=== PATIENT | male | born 1960 | race Caucasian/White ===

== ENCOUNTER → 2016-11-11 | Outpatient (CLI) | payer MEDICAID ==
[2016-11-11 18:44] LABS: Basophils # (A) 0.1 k/uL (0-0.2); Basophils % (A) 1 %; CH 29.9; CHCM 34.2; Eosinophils # (A) 0.3 k/uL (0-0.7); Eosinophils % (A) 4 %; HCT 43.3 % (39.0-53.0); HDW 2.77; HGB 14.5 gm/dL (13.0-17.5); Luc # (Auto) 0.15; Luc % (Auto) 2; Lymphocytes # (A) 2.2 k/uL (1.0-4.8); Lymphocytes % (A) 30 %; MCH 29.4 pg (25.0-35.0); MCHC 33.5 g/dL (31.0-37.0); MCV 87.9 fL (80.0-100.0); Mean Platelet Volume 7.1; Monocytes # (A) 0.4 k/uL (0-1.0); Monocytes % (A) 5 %; Neutrophils # (A) 4.2 k/uL (1.3-7.7); Neutrophils % (A) 58 %; RBC 4.93 m/uL (4.30-5.90); RDW 13.3 % (11.5-15.5); WBC 7.2 k/uL (3.8-10.6); WBC (Perox) 7.27
[2016-11-11 19:00] LABS: ALT 56 U/L (21-72); AST 32 U/L (17-59); Alkaline Phosphatase 74 U/L (38-126); Anion Gap 15 mmol/L; Blood Urea Nitrogen 13 mg/dL (9-20); Carbon Dioxide 23 mmol/L (22-30); Chloride 104 mmol/L (98-107); Cholesterol 171 mg/dL (<200); Glucose 192 mg/dL (74-99); HDL Cholesterol 47 mg/dL (40-60); Non-African American GFR(MDRD) >60 (>60 ml/min/1.73 sqM); Potassium 4.5 mmol/L (3.5-5.1); Sodium 142 mmol/L (137-145); Total Protein 7.9 g/dL (6.3-8.2); Triglycerides 167 mg/dL (<150); Uric Acid 6.9 mg/dL (3.5-8.5)
[2016-11-11 21:32] LABS: Hemoglobin A1C 8.9 % (4.2-6.1)
== END | disposition home or self-care (01) ==
LOC: MMGSC 12:17
PROVIDERS: ATTEND Family Medicine
DX: E11.9 Type 2 diabetes mellitus without complications (principal); E78.00 Pure hypercholesterolemia, unspecified; Z87.39 Personal history of other diseases of the musculoskeletal system and connective tissue; I10 Essential (primary) hypertension
CPT/HCPCS: 36415; 80053; 80061; 82043; 83036; 84439; 84443; 84550; 85025

== ENCOUNTER → 2017-08-15 | Outpatient (CLI) | payer MEDICAID ==
[2017-08-15 18:15] LABS: Basophils # (A) 0.1 k/uL (0-0.2); Basophils % (A) 1 %; CH 29.6; CHCM 33.3; Eosinophils # (A) 0.4 k/uL (0-0.7); Eosinophils % (A) 7 %; HCT 46.1 % (39.0-53.0); HDW 2.82; Luc % (Auto) 2; Lymphocytes # (A) 2.2 k/uL (1.0-4.8); Lymphocytes % (A) 33 %; MCHC 32.6 g/dL (31.0-37.0); MCV 89.1 fL (80.0-100.0); Mean Platelet Volume 7.3; Monocytes # (A) 0.4 k/uL (0-1.0); Monocytes % (A) 6 %; Neutrophils # (A) 3.5 k/uL (1.3-7.7); Neutrophils % (A) 53 %; RBC 5.18 m/uL (4.30-5.90); WBC 6.6 k/uL (3.8-10.6)
[2017-08-15 18:16] LABS: ALT 68 U/L (21-72); AST 30 U/L (17-59); Alkaline Phosphatase 82 U/L (38-126); Anion Gap 13 mmol/L; Blood Urea Nitrogen 12 mg/dL (9-20); Calcium 9.8 mg/dL (8.4-10.2); Carbon Dioxide 25 mmol/L (22-30); Chloride 98 mmol/L (98-107); Cholesterol 213 mg/dL (<200); Glucose 303 mg/dL (74-99); HDL Cholesterol 43 mg/dL (40-60); Non-African American GFR(MDRD) >60 (>60 ml/min/1.73 sqM); Potassium 4.7 mmol/L (3.5-5.1); Sodium 136 mmol/L (137-145); Total Bilirubin 0.8 mg/dL (0.2-1.3); Total Protein 7.5 g/dL (6.3-8.2)
== END | disposition home or self-care (01) ==
LOC: MMGSC 12:52
PROVIDERS: ATTEND Family Medicine
DX: E11.9 Type 2 diabetes mellitus without complications (principal); E78.5 Hyperlipidemia, unspecified
CPT/HCPCS: 36415; 80053; 80061; 83036; 84439; 84443; 85025

== ENCOUNTER → 2017-08-19 | Outpatient (CLI) | payer MEDICAID ==
--- NOTE | 2017-08-19 15:34 | NM ---
EXAMINATION TYPE: NM bone scan whole body DATE OF EXAM: 08/19/2017 COMPARISON: NONE HISTORY: Malignant neoplasm of bone Delayed whole-body scanning was performed following the injection of 24.3 mCi Tc 99m MDP. Images wer e acquired 4 hours post injection. FINDINGS: There is normal uptake within urinary bladder. Some contamination overlies the lower pelvic soft tiss ues. There may be some degenerative change within the shoulders and knees Spot imaging is performed over the upper thorax. The right proximal diaphyseal humerus has a focal ar ea of marked increased uptake suspicious for metastatic disease. Correlate for trauma. Small focal area of uptake is within the mid right foot likely degenerative IMPRESSION: 1. Focal suspicious area for neoplasm within the proximal diaphyseal right humerus.
== END | disposition home or self-care (01) ==
LOC: RADNMMAIN 10:27
PROVIDERS: ATTEND Family Medicine
DX: C41.9 Malignant neoplasm of bone and articular cartilage, unspecified (principal)
CPT/HCPCS: 78306; A9503

== ENCOUNTER → 2017-12-14 | Outpatient (CLI) | payer MEDICAID ==
[2017-12-15 02:58] LABS: Hemoglobin A1C 8.2 % (4.0-6.0)
== END | disposition home or self-care (01) ==
LOC: MMGSC 11:42
PROVIDERS: ATTEND Family Medicine
DX: E11.9 Type 2 diabetes mellitus without complications (principal)
CPT/HCPCS: 36415; 83036

== ENCOUNTER → 2020-05-01 | Outpatient (CLI) | payer OTHER | END | disposition home or self-care (01) | LOC: LABWHC1 10:39 | PROVIDERS: ATTEND Family Medicine | DX: R06.02 Shortness of breath (principal); R53.83 Other fatigue; R19.7 Diarrhea, unspecified; R11.0 Nausea | CPT/HCPCS: U0003; C9803 ==

== ENCOUNTER 2020-09-08 11:00 | Emergency (ER) | payer OTHER ==
[2020-09-08 11:24] VITALS: BP 129/78; PULSE 58; RESP 18; TEMP 98.6
[2020-09-08] MEDS ORDERED: KETOROLAC 15 MG/ML 1 ML VIAL IM STA (12:04)
[2020-09-08] MEDS ORDERED: ORPHENADRINE 30 MG/ML 2 ML VIAL IM STA (12:04)
--- NOTE | 2020-09-08 12:46 | XR ---
EXAMINATION TYPE: XR shoulder complete RT DATE OF EXAM: 09/08/2020 Comparison: Old MRI 01/10/2012 Clinical History: 60-year-old male Pain, immobility Findings: There is antegrade intramedullary nail fixation. Additional sideplate and cortical screw fixation keke ng the proximal shaft. 2 screws are also present within the humeral head region. 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 There is elvira loosening along the p roximal aspect of the sideplate and elvira loosening along both proximal and distal aspects of the int ramedullary nail. Proximally, there is up to 1.4 cm of periprosthetic lucency. Distally, there is up to 5 mm of periprosthetic lucency. Medial apex angulation is noted. Unable to exclude a subtle peripr osthetic, cortical fracture along the medial margin of the greater tuberosity adjacent to the peripro sthetic lucency, refer to the Grashey and scapular Y images as indicated by the arrows. Degenerative articular surface irregularity of the glenoid. Moderate degenerative change at the AC joint. Visualiz ed right hemithorax is clear. Impression: 1. Prior intramedullary nailing and sideplate/screw fixation along the proximal half of the humerus. 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 2. The chronic nonunion allows for abnormal movement and pseudoarticulation at the fracture site and secondary elvira hardware loosening. 3. Unable to exclude a subtle, nondisplaced cortical periprosthetic fracture at the proximal aspect o f the shabbir adjacent to the greater tuberosity (refer to the arrows on the Grashey and scapular Y views ).
--- NOTE | 2020-09-08 13:10 | ED ---
Extremity Problem HPI - General Chief complaint: Extremity Problem,Nontraumatic Stated complaint: rt shoulder injury Time Seen by Provider: 09/08/20 11:36 Source: patient Mode of arrival: ambulatory Limitations: no limitations - History of Present Illness Initial comments: 60-year-old male patient presents to the emergency department today for evaluation of right shoulder pain and stiffness. 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 Patient states that the last 8 months he has been having increased pain and difficulty with the arm. He states over the last 2-3 weeks has been worsening. Patient states today the muscles seem to seize up and he is lost range of motion to the arm. Denies any numbness or tingling. Denies swelling to the hand. Denies any known injury. Denies any fever or chills. Denies redness over the joint. Patient denies any recent rash, cough, shortness of breath, chest pain, abdominal pain, nausea, vomiting, diarrhea, constipation, back pain, numbness, tingling, dizziness, weakness, hematuria, dysuria, urinary urgency, urinary frequency, headache, visual changes, or any other complaints. - Related Data Previous Rx's Medication Instructions Recorded Cyclobenzaprine [Flexeril] 10 mg PO TID #15 tab 09/08/20 Allergies Allergy/AdvReac Type Severity Reaction Status Date / Time shellfish derived [Shellfish] Allergy Anaphylaxis Verified 09/08/20 11:24 Review of Systems ROS Statement: Those systems with pertinent positive or pertinent negative responses have been documented in the HPI. ROS Other: All systems not noted in ROS Statement are negative. Past Medical History Past Medical History: Atrial Fibrillation, Cancer, Diabetes Mellitus, Hypertension Additional Past Medical History / Comment(s): [place], [place] History of Any Multi-Drug Resistant Organisms: None Reported Past Surgical History: Orthopedic Surgery Additional Past Surgical History / Comment(s): implant in right arm, cadaver bone, ablation Past Psychological History: No Psychological Hx Reported Past Alcohol Use History: None Reported Past Drug Use History: None Reported General Exam Limitations: no limitations General appearance: alert, in no apparent distress, other (This is a well- developed, well-nourished adult male patient in no acute distress. Vital signs upon presentation are temperature 98.6F, pulse 58, respirations 18, blood pressure 129/78, pulse ox 98% on room air.) Respiratory exam: Present: normal lung sounds bilaterally. Absent: respiratory distress, wheezes, rales, rhonchi, stridor Cardiovascular Exam: Present: regular rate, normal rhythm, normal heart sounds. Absent: systolic murmur, diastolic murmur, rubs, gallop, clicks Extremities exam: Present: normal inspection, full ROM, normal capillary refill, other (Skin to the right arm is pink, warm, dry. Cap refills less than 3 seconds. Radial pulses 2+ and equal bilaterally. To manage range of motion to the right shoulder.). Absent: tenderness, pedal edema, joint swelling, calf tenderness Neurological exam: Present: alert, oriented X3, CN II-XII intact Psychiatric exam: Present: normal affect, normal mood Skin exam: Present: warm, dry, intact, normal color. Absent: rash Course Vital Signs 09/08/20 11:19 Temperature 98.6 F Pulse Rate 58 L Respiratory 18 Rate Blood Pressure 129/78 O2 Sat by Pulse 98 Oximetry Medical Decision Making - Medical Decision Making 60-year-old male patient presents to the emergency department today for evaluation of right shoulder pain. Physical examination did reveal normal neurovascular status with limited range of motion. X-ray was obtained of the right shoulder which demonstrated nonunion fracture of the right humerus with hardware loosening. There is possibly a new periprosthetic fracture. The patient does see Dr. Reed at [facility]. Patient will be discharged with pain medication muscle relaxer. He is instructed follow-up with his crop specialist as soon as possible. Return parameters discussed in detail. He verbalizes understanding and agrees with this plan. - Radiology Data Radiology results: report reviewed, image reviewed Multiple views of the right shoulder obtained. Report was reviewed in its entirety. Impression by shows prior intramedullary nailing inside plate/fixation along the proximal half of the humerus. 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 They chronic nonunion loss or abnormal movement and pseudoarticulation at the fracture site and secondary elvira hardware loosening. Unable to exclude a subtle, nondisplaced cortical periprosthetic fracture at the proximal asked back of the right adjacent to the greater tuberosity. Disposition Clinical Impression: Right shoulder pain Disposition: HOME SELF-CARE Condition: Good Instructions (If sedation given, give patient instructions): Shoulder Pain (ED) Additional Instructions: Follow-up with your crop specialist as soon as possible. Follow-up th rough primary care physician for recheck in 1-2 days. Return to the emergency department immediately for any new, worsening, or concerning symptoms. Prescriptions: Cyclobenzaprine [Flexeril] 10 mg PO TID #15 tab Is patient prescribed a controlled substance at d/c from ED?: No Referrals: Sara Nance MD [Primary Care Provider] - 1-2 days Time of Disposition: 13:10
== END 2020-09-08 13:10 | disposition home or self-care (01) ==
LOC: EC 11:00
DX: S42.301A Unspecified fracture of shaft of humerus, right arm, initial encounter for closed fracture (principal); M25.511 Pain in right shoulder; Z91.013 Allergy to seafood; Z98.890 Other specified postprocedural states; Z85.830 Personal history of malignant neoplasm of bone; X58.XXXA Exposure to other specified factors, initial encounter
CPT/HCPCS: 73030; 99283; 96372 ×2; J2360; J1885

== ENCOUNTER → 2021-11-18 | Outpatient (CLI) | payer OTHER ==
--- NOTE | 2021-11-18 19:53 | CONS ---
CONSULTATION DATE OF SERVICE: 11/18/2021 This 61-year-old gentleman has been evaluated in Sleep Center for obstructive sleep apnea-hypopnea syndrome. HISTORY OF PRESENT ILLNESS/SLEEP-WAKE EVALUATION: Patient was diagnosed with obstructive sleep apnea about 18 years ago. Over all these years he has continued to use his CPAP equipment and he cannot sleep without the machine. Recently while using his CPAP unit he was experiencing bloating gas in his stomach. He said that it happened some period of time before, but now is significantly more. His sleep schedule is from 10 p.m. to 9 or 9:30 a.m. Sometimes he does have problems with falling asleep, although no TV in bedroom. He usually sleeps on the side position. He wakes up from sleep 6 times with 4 episodes of nocturia. He grinds his teeth, has dry mouth, panic attacks, restless legs. In the morning the patient wakes up tired, has difficulties paying attention, worries about his sleep. [place] Sleepiness Scale is 8. His weight has decreased over the last 10 years from 299 pounds to 259 pounds today. The patient did not bring in his CPAP unit. According to family, his CPAP unit is more than 5 years old. I checked CPAP unit, pressure is 12 cm H2O, no information about AHI. PAST MEDICAL HISTORY: Positive for atrial fibrillation, hypertension, sarcoma of the bone, depression, panic attacks, diabetes mellitus, hyperlipidemia, liver problems. 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 MEDICATIONS: 1. Victoza 1.8 mg once a day. 2. Lantus. 3. Albuterol inhaler. 4. Famotidine. 5. Eliquis. 6. Metformin. 7. . 8. Amlodipine. 9. Atorvastatin. 10.Glimepiride. 11.Alprazolam. 12.Magnesium supplement. FAMILY HISTORY: Heart problems, hypertension, sleep apnea, during sleep. SOCIAL HISTORY: Positive history of smoking 2 to 3 packs per day; quit smoking more than 22 years ago. Alcohol consumption occasional. REVIEW OF SYSTEMS: Gas, bloating while using his CPAP, awakenings from sleep. No fevers. No double vision. No recent chest pain. No shortness of breath. No abdominal pain. No bleeding episodes. No blood in the urine. No seizure episodes. PHYSICAL EXAMINATION: GENERAL: Pleasant gentleman without distress. VITAL SIGNS: BP 139/71, HR 58, RR 15, height 5 feet 9-1/2 inches, weight 259 pounds, body mass index 37.6, temperature 97.2, oxygen saturation at room air 96%. HEENT: PERRLA, EOMI, evaluation of oropharynx showed tongue protrudes midline. Moderately low position of soft palate; Mallampati II to III. Big uvula. NECK: Supple, no JVD. Thyroid is not palpable. Wide neck; 20-3/4 inches in circumference. LUNGS: Clear to percussion and to auscultation. Good air exchange. No wheezing or rhonchi. HEART: S1, S2 irregular. ABDOMEN: Obese. EXTREMITIES: No clubbing or cyanosis. EMERGENCY DEPARTMENT DIRECTOR: Awake, alert, and oriented X3. Cranial nerves 2 to 7 intact. There is no fasciculation or atrophy. noted. No focal deficits observed. IMPRESSION: 1. History of obstructive sleep apnea-hypopnea syndrome for 18 years. The patient continues to use CPAP equipment every night for the whole night. Recently he developed gas bloating while using his CPAP. He has moderately low position of soft palate, extremely wide neck, 20-3/4 inches in circumference; obstructive sleep apnea-hypopnea syndrome. 2. Obesity; body mass index 37.6. 3. History of restless leg symptoms. 4. Hypertension. 5. Asthma. 6. Atrial fibrillation, status post cardiac ablation and cardioversion. 7. History of bone sarcoma of right upper arm. 8. History of depression. 9. History of panic attacks. 10.Diabetes mellitus. 11.Status post right shoulder replacement. 12.Status post tonsillectomy. 13.Hyperlipidemia. 14.Memory problems. 15.Liver problems. PLAN: 1. To obtain results of previous sleep studies. 2. CPAP titration for re-evaluation of effective CPAP pressure for correction of respiratory abnormalities and to find a proper mask. 3. I adjusted CPAP pressure down from 12 cm H2O to 10 cm H2O; possibly gas bloating is related to pressure in the machine. 4. After titration the patient will get a new CPAP unit. 5. Losing weight. 6. No driving if feeling any sleepiness. Thank you very much for referring this patient for consultation. SincerelNaresh parr MD, PhD, FAASM Diplomat of [place] [employer] Sleep Medicine Board of [place] [employer] Waste Disposal Leakage Tester of [facility] [place] [email or web address] / LIZABETH: [id number] / [email or web address]
== END ==
LOC: SLEEP 16:20
PROVIDERS: ATTEND Internal Medicine
DX: G47.33 Obstructive sleep apnea (adult) (pediatric) (principal); E66.9 Obesity, unspecified; G25.81 Restless legs syndrome; E78.5 Hyperlipidemia, unspecified; R41.3 Other amnesia; E11.9 Type 2 diabetes mellitus without complications; K76.9 Liver disease, unspecified; I10 Essential (primary) hypertension; J45.909 Unspecified asthma, uncomplicated; I48.91 Unspecified atrial fibrillation; F32.A Depression, unspecified; Z85.830 Personal history of malignant neoplasm of bone; Z86.59 Personal history of other mental and behavioral disorders; Z90.09 Acquired absence of other part of head and neck; Z68.37 Body mass index [BMI] 37.0-37.9, adult; Z99.89 Dependence on other enabling machines and devices; Z96.611 Presence of right artificial shoulder joint; Z79.4 Long term (current) use of insulin; Z79.84 Long term (current) use of oral hypoglycemic drugs; Z79.899 Other long term (current) drug therapy; Z79.51 Long term (current) use of inhaled steroids; Z91.013 Allergy to seafood
CPT/HCPCS: 99211

== ENCOUNTER → 2022-02-26 | Outpatient (CLI) | payer OTHER ==
[~2022-02-26] MED LIST: BEBTELOVIMAB (EUA) 175 MG/2 ML VIAL IV NR; SODIUM CHLORIDE 0.9% 500 ML 500 ML in EMPTY BAG 1 BAG IV PRN
[2022-02-26 13:50] VITALS: TEMP 97.7
[2022-02-26 13:58] VITALS: BP 124/62; PULSE 50; RESP 16
== END ==
LOC: PROCWHC3 13:01
PROVIDERS: ATTEND Family Medicine
DX: U07.1 COVID-19 (principal); E66.9 Obesity, unspecified; E11.9 Type 2 diabetes mellitus without complications; Z68.36 Body mass index [BMI] 36.0-36.9, adult; Z91.013 Allergy to seafood
CPT/HCPCS: Q0222; M0222; 96374

== ENCOUNTER → 2022-03-10 | Outpatient (CLI) | payer OTHER ==
--- NOTE | 2022-03-10 18:55 | SFUN ---
SLEEP CENTER FOLLOW UP NOTE DATE OF SERVICE: 03/10/2022 This 62-year-old gentleman has been followed in Sleep Center for treatment of obstructive sleep apnea-hypopnea syndrome. During consultation in November 2021, the patient complained of a feeling of bloating in his belly while he was using CPAP equipment. We proceeded with CPAP titration and subsequently the patient received a new machine. Today is his first visit on the new BiPAP unit. The patient is able to use BiPAP equipment every night, and he has no bloating sensation while he is using BiPAP. I checked his BiPAP unit. Usage is 100% of nights, and 97% of nights for more than 4 hours, average usage 8 hours 24 minutes, which is great compliance. Maximal inspiratory pressure 20, minimal expiratory pressure 6, pressure support 4. Apnea- hypopnea index is only 1.5, which is absolutely normal. Leak is borderline in 95%, 39.2. MEDICATIONS: Victoza, Lantus, albuterol, famotidine, Eliquis, metformin, , amlodipine, atorvastatin, glimepiride, alprazolam. PHYSICAL EXAMINATION: GENERAL: Pleasant patient in no distress. VITAL SIGNS: BP 124/69, HR 60, RR 16, weight 258.0, temperature 96.8, oxygen saturation at room air 97%. HEENT: PERRLA, EOMI, evaluation of oropharynx showed tongue protrudes midline. Moderately low position of soft palate; Mallampati II to III. NECK: Supple, no JVD. Thyroid is not palpable. LUNGS: Clear to percussion and to auscultation. Good air exchange. No wheezing or rhonchi. HEART: S1, S2 regular. ABDOMEN: Obese. EXTREMITIES: No clubbing or cyanosis. HYDROGRAPHER: Awake, alert, and oriented X3. Cranial nerves 2 to 7 intact. There is no fasciculation or atrophy. noted. No focal deficits observed. IMPRESSION: 1. Obstructive sleep apnea-hypopnea syndrome. Patient demonstrated 100% compliance with treatment, benefitting from treatment. Normal respiration on BiPAP. No feeling of gas bloating after getting new equipment with adjusted pressure. 2. History of atrial fibrillation, status post cardiac ablation and cardioversion. Regular heartbeats. 3. Obesity. 4. Hypertension. 5. Asthma. 6. History of bone sarcoma in the right upper arm. 7. History of depression. 8. History of panic attack. 9. Diabetes mellitus. 10.Status post right shoulder replacement. 11.Status post tonsillectomy. 12.Hyperlipidemia. 13.Memory problems. 14.Liver problems. PLAN: 1. Patient will continue to use PAP equipment every night for the whole night. 2. Sleep hygiene with regular time in bed for at least 7-1/2 to 8 hours. 3. Precautions related to driving. No driving if feeling sleepiness. 4. I will maintain all necessary prescription for PAP supplies including mask, tube, filters. 5. Watching weight. 6. Follow-up visit in 6 months or earlier if patient has any problems. Thank you very much for allowing me to participate in the management of your patient. Sincerely, Naresh Chilel MD, PhD, FAASM Diplomat of [place] [employer] Sleep Medicine Board of [place] [employer] Quality Reviewer of [facility] [place] [email or web address] / LIZABETH: [id number] /
== END ==
LOC: SLEEP 16:46
PROVIDERS: ATTEND Internal Medicine
DX: G47.33 Obstructive sleep apnea (adult) (pediatric) (principal); I48.91 Unspecified atrial fibrillation; E66.9 Obesity, unspecified; I10 Essential (primary) hypertension; J45.909 Unspecified asthma, uncomplicated; F32.A Depression, unspecified; Z98.890 Other specified postprocedural states; Z85.830 Personal history of malignant neoplasm of bone; F41.0 Panic disorder [episodic paroxysmal anxiety]; E11.9 Type 2 diabetes mellitus without complications; Z96.611 Presence of right artificial shoulder joint; Z90.09 Acquired absence of other part of head and neck; R41.3 Other amnesia; K76.9 Liver disease, unspecified; Z91.013 Allergy to seafood; Z79.01 Long term (current) use of anticoagulants; Z79.84 Long term (current) use of oral hypoglycemic drugs; Z79.51 Long term (current) use of inhaled steroids; Z79.899 Other long term (current) drug therapy

== ENCOUNTER → 2022-09-22 | Outpatient (CLI) | payer OTHER ==
--- NOTE | 2022-09-22 17:22 | P.PN ---
Subjective DATE: 09/22/2022 FOLLOW UP VISIT. Patient with obstructive sleep apnea hypopnea syndrome return to sleep center for follow-up visit. Information from previous visit have been reviewed. Patient is using BPAP equipment every night for the whole night, getting BPAP supplies in time. The patient does not have significant problems with the mask, BPAP unit and humidification. [place] sleepiness scale is 5, which is normal. I checked information from BPAP unit. BPAP unit pressure maximal inspiratory pressure 20, minimal expiratory 6, p ressure-support 4, average pressure 17.7/13.7 cm H2O. Usage is 100 % for more then 4 hours, average 8.75 hours per night. Leak is 18.9 l/m, which is in acceptable range. Apnea Hypopnea Index is 3.0, which is normal. Sometimes patient wakes up from sleep because of high pressure in BiPAP unit. MEDICATIONS:1. Lantus 2. Victoza 3. Amlodipine 200 mg once a day 4. Metformin 1000 mg once a day 5. Atorvastatin 40 mg once a day 6. Amlodipine/benazepril 5-20 mg once a day 7. Eliquis 5 mg twice a day 8. Lamotrigine 200 mg twice a day During physical exam: GENERAL: A pleasant patient without any distress. VITAL SIGNS: BP 169/72, HR 67, RR 16 , weight 251.4, temperature 97.1, oxygen saturation at room air 98 % . HEENT: PERRLA, EOMI.low position of soft palate, Mallapati2-3 . NECK: Supple. No JVD. LUNGS: Clear to percussion and to auscultation. Good air exchange. No wheezing or rhonchi. HEART: S1, S2 regular. ABDOMEN: Soft and nontender. Obese EXTREMITIES: No clubbing or cyanosis. LAN SPECIALIST: Awake, alert, and oriented x3. No focal deficit. Impressions: 1. Obstructive sleep apnea-hypopnea syndrome. Patient demonstrated great compliance with treatment, benefiting from treatment. 2. History of atrial fibrillation. 3. Obesity. 4. Hypertension. 5. Asthma. 6. History of sarcoma over the bone in the right upper arm. 7. History of depression. 8. History of panic attack. 9. Diabetes mellitus. 10. Later problems. 11. Memory problems. 12. Hyperlipidemia 13 status post right shoulder replacement. Plan: 1. Continue using BPAP equipment every night for the whole night. I decrease maximal inspiratory pressure to 18 cm of water. 2. To change air filter at least 1-2 times per month. 3. PAP unit should stay lower then position of the head. 4. Advised patient to remove all remaining water from humidifier canister daily and make it dry after each usage. Refill canister with fresh distilled water before each usage. 5. Sleep hygiene with regular time in bed for at least 8 hours. 6. Precautions related to driving. No driving if feel any sleepiness. 7. I will maintain prescription for PAP supplies including mask, tube, filters. 8. Follow up visit in 6 months or earlier if patient has any problems. 9. Watching and losing weight. Thank you very much for allowing me to participate in the management of your patient. Naresh Chilel MD, PhD, FAASM. Diplomat of [place] [employer], Sleep Medicine Board by [place] [employer] Clinical Veterinarian of [facility] [place]
== END ==
LOC: SLEEP 16:19
PROVIDERS: ATTEND Internal Medicine
DX: G47.33 Obstructive sleep apnea (adult) (pediatric) (principal); Z99.89 Dependence on other enabling machines and devices; E66.9 Obesity, unspecified; Z86.59 Personal history of other mental and behavioral disorders; Z86.79 Personal history of other diseases of the circulatory system; E11.9 Type 2 diabetes mellitus without complications; E78.5 Hyperlipidemia, unspecified; J45.909 Unspecified asthma, uncomplicated; Z85.831 Personal history of malignant neoplasm of soft tissue; R41.3 Other amnesia; Z96.611 Presence of right artificial shoulder joint; Z79.84 Long term (current) use of oral hypoglycemic drugs; Z91.013 Allergy to seafood
CPT/HCPCS: 99212